=== PATIENT | female | born 1985 | race African-American/Black ===

== ENCOUNTER → 2022-08-07 10:48 | Outpatient (CLI) | payer OTHER, SELFPAY ==
--- NOTE | ~2022-08-07 | XR_ITS ---
Clinical Indication: Asthma PA and lateral views of the chest: Comparison: None Findings: The lungs are clear, without evidence of focal consolidation or pleural effusion. Cardiome diastinal silhouette is within normal limits. Bones and soft tissues are unremarkable. Impression: Normal chest. Reviewed, dictated and finalized at location . Impression: Normal chest.
== END ==
PROVIDERS: PCP Internal Medicine; Visit Provider Internal Medicine
DX: J45.909 Unspecified asthma, uncomplicated (principal)
CPT/HCPCS: 71046

== ENCOUNTER → 2022-08-14 11:05 | Outpatient (CLI) | payer OTHER, SELFPAY ==
--- NOTE | ~2022-08-14 | US_ITS ---
EXAMINATION: US pelvic complete w TV DATE: 08/14/2022 11:35 INDICATION: Pelvic and perineal pain. TECHNIQUE: Multiple transabdominal and transvaginal sonographic images of the pelvis were obtained. COMPARISON: Ultrasound 09/26/2018 FINDINGS: TRANSABDOMINAL ULTRASOUND: The uterus measures 7.7 x 4.5 x 5.2 cm. There is no free fluid in the pelvis. TRANSVAGINAL ULTRASOUND: The endometrial complex measures 5 mm in thickness. There are 1.9 cm and 1.6 cm intramural fibroids. There is a 2.7 cm intramural fibroid. The right ovary measures 3.5 x 2.0 x 2.7 cm. The left ovary margarito sures 3.7 x 2.0 x 3.3 cm. There is normal vascular flow in the ovaries. IMPRESSION: 1. Uterine fibroids. Reviewed, dictated and finalized at location A. IMPRESSION: 1. Uterine fibroids.
== END ==
PROVIDERS: PCP Internal Medicine; Visit Provider Internal Medicine
DX: R10.2 Pelvic and perineal pain (principal); D25.9 Leiomyoma of uterus, unspecified
CPT/HCPCS: 76830; 76856